=== PATIENT | female | born 1980 | race Caucasian/White ===

== ENCOUNTER 2017-12-27 08:52 | Emergency (ER) | payer OTHER ==
[~2017-12-27] VITALS: Ht 170.2 cm; Wt 58.1 kg
[2017-12-27] MEDS ORDERED: IBUP400T18 PO (09:02)
--- NOTE | 2017-12-27 09:17 | PHYS DOC ---
Adult General Chief Complaint Chief Complaint: LACERATION/AVULSION HPI HPI 37-year-old female presents with scalp laceration. The patient was doing some work in the basement when she slipped and fell backwards. She struck the occiput on the corner of a piece of furniture. She did not get knocked unconscious. She felt her head and noticed that it was bleeding. The bleeding was controlled prior to arrival. The patient states feeling a little off, but denies any focal symptoms. She has not had any vomiting. She has a mild headache. Her accompanies her states that her speech and demeanor is normal. Coordination is normal. She denies any other injuries. Her tetanus is not up-to-date. Review of Systems Review of Systems Constitutional: Denies fever or chills [] Eyes: Denies change in visual acuity, redness, or eye pain [] HENT: Denies nasal congestion or sore throat [] Respiratory: Denies cough or shortness of breath [] Cardiovascular: No additional information not addressed in HPI [] GI: Denies abdominal pain, nausea, vomiting, bloody stools or diarrhea [] : Denies dysuria or hematuria [] Musculoskeletal: Denies back pain or joint pain [] Integument: Laceration of scalp[] Neurologic: Denies headache, focal weakness or sensory changes [] Endocrine: Denies polyuria or polydipsia [] All other systems were reviewed and found to be within normal limits, except as documented in this note. Allergies Allergies Allergies Coded Allergies Type Severity Reaction Last Updated Verified No Known Drug Allergies 12/27/17 No Physical Exam Physical Exam Constitutional: Well developed, well nourished, no acute distress, non-toxic appearance. [] HENT: Normocephalic, atraumatic, bilateral external ears normal, oropharynx moist, no oral exudates, nose normal. [] Eyes: PERRLA, EOMI, conjunctiva normal, no discharge. [] Neck: Normal range of motion, no tenderness, supple, no stridor. [] Cardiovascular:Heart rate regular rhythm, no murmur [] Lungs & Thorax: Bilateral breath sounds clear to auscultation [] Abdomen: Bowel sounds normal, soft, no tenderness, no masses, no pulsatile masses. [] Skin: One centimeter linear laceration in the posterior scalp. No signs of foreign body or infection.[] Back: No tenderness, no CVA tenderness. [] Extremities: No tenderness, no cyanosis, no clubbing, ROM intact, no edema. [] Neurologic: Alert and oriented X 3, normal motor function, normal sensory function, no focal deficits noted. [] Psychologic: Affect normal, judgement normal, mood normal. [] EKG EKG [] Radiology/Procedures Radiology/Procedures [] Course & Med Decision Making Course & Med Decision Making Pertinent Labs and Imaging studies reviewed. (See chart for details) The patient has normal symptoms for hitting her head. She does not have any focal deficits. I do not see evidence of significant trauma that would warrant CT scan. I did offer this option to the patient if she felt was necessary, and she does not believe it is. If she has any new or worsening symptoms she will return to the emergency room. I repaired her laceration with geovanna. See note below for details. She was given a Tdap booster. She had no complications while in the ED. She is stable for discharge at this time. [] Dragon Disclaimer Dragon Disclaimer This electronic medical record was generated, in whole or in part, using a voice recognition dictation system. Laceration Repair Lac Repair Indication: [1 cm laceration of the occipital scalp.] Procedure: Verbal consent was obtained from the patient for the procedure. The patient was placed in the appropriate position and anesthesia was not used. The area was then cleaned with normal saline under pressure. There were no foreign objects found. The laceration was closed with 2 skin geovanna. The wound area was not covered with a dressing. Total repaired wound length: 1 cm. Other Items: None The patient tolerated the procedure well. Complications: None. Departure Departure: Referrals: ROSEMARY GANN DO, MPH (PCP) MARVEL MONTANO DO Dec 27, 2017 09:17
[2017-12-27] MEDS ORDERED: DIPHTH,PERTUSS(ACELL),TET TOX 0.5 ML DISP.SYRIN. VAX IM ONE (09:30)
[2017-12-27 09:35] VITALS: BP 125/71
== END 2017-12-27 09:45 | disposition home or self-care (01) ==
LOC: ER 08:52
DX: S01.01XA Laceration without foreign body of scalp, initial encounter (principal); W01.190A Fall on same level from slipping, tripping and stumbling with subsequent striking against furniture, initial encounter; Y92.89 Other specified places as the place of occurrence of the external cause; Y93.89 Activity, other specified; Y99.8 Other external cause status
CPT/HCPCS: 12001; 90471; 90715; 99283-25